=== PATIENT | female | born 1970 | race Caucasian/White ===

== ENCOUNTER 2024-02-02 09:41 | Emergency (ER) | payer MEDICAID, SELFPAY ==
[2024-02-02 09:59] VITALS: BP 148/89; PULSE 71; RESP 18; TEMP 36.6; O2SAT 98; BMI 42.5
--- NOTE | 2024-02-02 10:16 | W.ED.ABDPA2 ---
HPI - Abdominal Pain General: Chief Complaint: Abdominal Pain Stated Complaint: left side pain, gittery, dizzy Time Seen by Provider: 02/02/24 10:05 History of Present Illness: 60-year-old female who presents emergency room with left flank and groin pain, nausea and vomiting, and dysuria. She says she think she has a urinary tract infection. She feels like she cannot urinate. She says she has had fevers. She says at the beginning of the week she started with nausea vomiting and diarrhea that lasted about 3 days. She then felt better for a day or 2 and then the symptoms started. Fever flank pain primarily Physical Exam Narrative: EXAM NARRATIVE: General: Alert, no acute distress. Skin: Warm, dry. Head: Normocephalic, atraumatic. Neck: Supple, trachea midline. Eye: Extraocular movements are intact. Ears, nose, mouth and throat: Dry oral mucosa Cardiovascular: Regular, Normal peripheral perfusion. Respiratory: Lungs are clear to auscultation, respirations are non-labored, breath sounds are equal, Symmetrical chest wall expansion. Gastrointestinal: Soft, moderate left flank pain, diffuse mild abdominal pain, Non distended Musculoskeletal: Normal ROM, no deformity. Neurological: Alert and oriented, No focal neurological deficit observed. Psychiatric: Cooperative, appropriate mood & affect. Course Vital Signs: Vital signs: Vital Signs Temperature 97.9 F 02/02/24 09:59 Pulse Rate 105 H 02/02/24 13:43 Respiratory Rate 17 02/02/24 13:43 Blood Pressure 122/71 02/02/24 13:43 Pulse Oximetry 96 02/02/24 13:43 Oxygen Delivery Me thod Room Air 02/02/24 13:43 MDM - Abdominal Pain Medical Decision Making Medical decision making: Differential diagnosis including but not limited to and based on the above HPI, review of systems and physical exam: Ureterolithiasis. Urinary tract infection. Appendicitis. Cholecystis. Musculoskeletal / back pain. Pyelonephritis Orders placed to evaluate differential diagnosis based on the above differential, HPI and physical exam Lab Review: Laboratory results were reviewed and interpreted by myself the emergency room physician. Some mild leukocytosis. No renal failure. Her glucose is a bit elevated at 273. Urine has leukocyte esterase and nitrite positive. Whites and reds. CT of the abdomen pelvis with contrast. Mild left hydronephrosis and hydroureter with perinephric stranding. There is a 3 mm stone in the bladder which most likely represents a passed stone particularly given her history. And that she is now pain-free. This was reviewed and interpreted by myself the emergency room physician. I also reviewed the radiology report. I reviewed the patient's medical record. Reexamination: Patient seems to be feeling quite a bit better. Pain has resolved. No increased work of breathing. No altered mental status. Assessment and plan: Passed kidney stone Urinary tract infection Dehydration ?IV Dilaudid, IV Zofran and IV fluids. IV Rocephin. - Discharged home - Discussed findings and plan with patient. Answered any questions. - All laboratory values were reviewed and interpreted personally by myself, the ER physician - All imaging was reviewed and interpreted personally by myself, the ER physician. - Evaluation and treatment of this problem were appropriate in the emergency setting Lab Data 02/02/24 10:23 02/02/24 10:23 Labs/Radiology: Radiology Impressions Abdomen/Pelvis CT 02/02/24 11:54 IMPRESSION: 1. There is mild left hydronephrosis and hydroureter with perinephric stranding. There is a tiny stone (3 mm) in the bladder which may reflect a recently passed left ureteral stone. Punctate nonobstructive renal stones are seen bilaterally. 2. Hepatosplenomegaly with hepatic steatosis and periportal lymphadenopathy. 3. Uterine lesions that may represent fibroids/lipoleiomyoma. The endometrium appears slightly prominent for age. Recommend nonemergent ultrasound to further assess. Laboratory Results WBC 10.65 10^3/uL (3.29-11.43) 02/02/24 10:23 RBC 4.95 10^6/uL (3.85-5.65) 02/02/24 10:23 Hgb 14.00 g/dL (11.27-16.99) 02/02/24 10:23 Hct 41.9 % (36-47) 02/02/24 10:23 MCV 84.6 fl (85-98) L 02/02/24 10:23 MCH 28.3 pg (27-33) 02/02/24 10:23 MCHC 33.4 g/dL (30-55) 02/02/24 10:23 RDW 14.1 % (12.1-15.1) 02/02/24 10:23 Plt Count 271 10^3/cmm (157-399) 02/02/24 10:23 MPV 9.4 fL (7.4-10.4) 02/02/24 10:23 Neut % (Auto) 63.5 % 02/02/24 10:23 Lymph % (Auto) 28.5 % 02/02/24 10:23 Mccone % (Auto) 3.8 % 02/02/24 10:23 Eos % (Auto) 2.1 % 02/02/24 10:23 Baso % (Auto) 0.6 % 02/02/24 10:23 Neut # (Auto) 6.77 10^3/uL (1.8-7.7) 02/02/24 10:23 Lymph # (Auto) 3.0 10^3/uL (0.8-4.8) 02/02/24 10:23 Mccone # (Auto) 0.4 10^3/uL (0.2-0.9) 02/02/24 10:23 Eos # (Auto) 0.2 10^3/uL (0.0-0.8) 02/02/24 10:23 Baso # (Auto) 0.1 10^3/uL (0.0-0.1) 02/02/24 10:23 Nucleated RBC % (auto) 0 % 02/02/24 10:23 Nucleated RBCs # 0.0 /100WBC 02/02/24 10:23 Sodium 140 mmol/L (136-145) 02/02/24 10:23 Potassium 3.7 mmol/L (3.5-5.1) 02/02/24 10:23 Chloride 104 mmol/L (98-107) 02/02/24 10:23 Carbon Dioxide 19 mmol/L (22-29) L 02/02/24 10:23 Anion Gap 20.7 (5-19) H 02/02/24 10:23 BUN 13 mg/dL (6-20) 02/02/24 10:23 Creatinine 0.7 mg/dL (0.5-0.9) 02/02/24 10:23 GFR Calculation 87.9 mL/min (90-130) L 02/02/24 10:23 Glucose 273 mg/dL (65-115) H 02/02/24 10:23 Calculated Osmolality 300 mOsm/kg (285-295) H 02/02/24 10:23 Lactic Acid 2.7 mmol/L (0.5-2.2) H 02/02/24 10:23 Calcium 8.8 mg/dL (8.5-10.5) 02/02/24 10:23 Total Bilirubin 0.4 mg/dL (0.15-1.2) 02/02/24 10:23 AST 18 U/L (0-32) 02/02/24 10:23 ALT 33 U/L (0-33) 02/02/24 10:23 Alkaline Phosphatase 83 U/L (35-105) 02/02/24 10:23 C-Reactive Protein 10.4 mg/L (0.0-4.9) H 02/02/24 10:23 Total Protein 7.1 g/dL (6.6-8.7) 02/02/24 10:23 Albumin 3.7 g/dL (3.5-5.2) 02/02/24 10:23 Globulin 3.4 g/dL (1.3-4.6) 02/02/24 10:23 Lipase 40 U/L (13-60) 02/02/24 10:23 Procalcitonin 0.11 ng/mL (0-0.5) 02/02/24 10:23 Urine Color Yellow (Yellow) 02/02/24 10:56 Urine Appearance Cloudy (CLEAR) A 02/02/24 10:56 Urine pH 5 (5-7) 02/02/24 10:56 Ur Specific Bozman 1.015 (1.005-1.030) 02/02/24 10:56 Urine Protein Neg (Negative) 02/02/24 10:56 Urine Glucose (UA) 4+ (Normal) H 02/02/24 10:56 Urine Ketones 2+ (Negative) H 02/02/24 10:56 Urine Blood 2+ (Negative) H 02/02/24 10:56 Urine Nitrate Positive (Negative) A 02/02/24 10:56 Urine Bilirubin Neg (Negative) 02/02/24 10:56 Urine Urobilinogen Norm mg/dL (Negative) 02/02/24 10:56 Ur Leukocyte Esterase 2+ (Negative) H 02/02/24 10:56 Urine RBC 5-10 /hpf (0-2) H 02/02/24 10:56 Urine WBC 25-40 /hpf (0-5) H 02/02/24 10:56 Ur Squamous Epith Cells 5-10 /hpf (0-5) H 02/02/24 10:56 Amorphous Sediment Not Reportable 02/02/24 10:56 Urine Bacteria 2+ /hpf (NONE) H 02/02/24 10:56 Serum Ketones Negative (Negative) 02/02/24 10:23 All radiology interpretation(s) finalized by discharge Discharge Plan Discharge Patient Disposition: Home Clinical Impression: Kidney stone, Urinary tract infection, Dehydration Condition: Stable Prescriptions: New hydrocodone-acetaminophen 5-325 mg tablet 1 tab PO Q6H PRN (Reason: pain) Qty: 20 0RF ondansetron 8 mg tablet,disintegrating 8 mg PO .q6 PRN (Reason: nausea and vomiting) Qty: 14 0RF cefdinir 300 mg capsule 300 mg PO BID 7 Days Qty: 14 0RF Discharge Orders: Discharge ED (Routine); Ordered 02/02/24 Ordered By: Zulma Brown Referrals: Gabriella Waddell APN [Family Provider] - Discharge Diet: Usual diet Discharge Activity: Increase activity as tolerated Patient Instructions: Kidney Stones (ED), Urinary Tract Infection in Women (ED) Activity Restrictions/Additional Instructions: CT scan shows what is likely fibroids in your uterus. You need to have follow-up with your primary care or your technical analyst for a routine ultrasound to evaluate this further. Thank you for choosing [facility] for your healthcare needs today. Please realize this is an emergency room and that we are providing you with a medical screening exam and this may not be complete and all inclusive of all the testing and or work up that you may need to determine your ailment or severity of your illness. You have been screened and evaluated and felt safe for discharge. Health conditions do change or evolve sometimes and as such it is important that you follow up with your Primary Doctor to be re checked, 3-5 days is a general good time frame for follow up. You are always welcome to return to the ED for re assessment if your symptoms are worsening or you have new concerns Coding Level of Care Code ED [employer] for [employer] Delacruz
[2024-02-02] MEDS: sodium chloride 0.9% 1,000 ML 999 ML IV (10:27)
[2024-02-02] MEDS: ondansetron 2 mg/ML SDV 2 mL 8 MG IVP (10:28)
[2024-02-02] MEDS: HYDROmorphone 1 mg/mL INJ 1 mL IVP (10:28)
[2024-02-02 10:32] LABS: Basophils # 0.1 10^3/uL (0.0-0.1); Basophils % 0.6 %; Eosinophils # 0.2 10^3/uL (0.0-0.8); Eosinophils % 2.1 %; Hematocrit 41.9 % (36-47); Lymphocytes % 28.5 %; Mean Corpuscular HGB Conc 33.4 g/dL (30-55); Mean Corpuscular Hemoglobin 28.3 pg (27-33); Mean Corpuscular Volume 84.6 fl (85-98); Mean Platelet Volume 9.4 fL (7.4-10.4); Monocytes # 0.4 10^3/uL (0.2-0.9); Monocytes % 3.8 %; Neutrophils # 6.77 10^3/uL (1.8-7.7); Neutrophils % 63.5 %; Nucleated Red Blood Cells % 0 %; Platelet Count 271 10^3/cmm (157-399); Red Blood Count 4.95 10^6/uL (3.85-5.65); Red Cell Distribution Width 14.1 % (12.1-15.1); White Blood Count 10.65 10^3/uL (3.29-11.43)
[2024-02-02 10:46] VITALS: BP 134/76; PULSE 70; O2SAT 97
[2024-02-02 10:51] LABS: Alanine Aminotransferase 33 U/L (0-33); Albumin Level 3.7 g/dL (3.5-5.2); Alkaline Phosphatase 83 U/L (35-105); Anion Gap 20.7 (5-19); Aspartate Amino Transferase 18 U/L (0-32); Blood Urea Nitrogen 13 mg/dL (6-20); C Reactive Protein 10.4 mg/L (0.0-4.9); Calcium 8.8 mg/dL (8.5-10.5); Carbon Dioxide 19 mmol/L (22-29); Chloride 104 mmol/L (98-107); Creatinine Clr Calc Pharmacy 103.1516; Globulin 3.4 g/dL (1.3-4.6); Glomerular Filtration Rate 87.9 mL/min (90-130); Glucose 273 mg/dL (65-115); Lipase 40 U/L (13-60); Osmolality Calculated 300 mOsm/kg (285-295); Potassium 3.7 mmol/L (3.5-5.1); Sodium 140 mmol/L (136-145); Total Bilirubin 0.4 mg/dL (0.15-1.2); Total Protein 7.1 g/dL (6.6-8.7)
[2024-02-02 10:52] LABS: Lactic Sepsis W/Reflex 2.7 mmol/L (0.5-2.2)
[2024-02-02 10:57] LABS: Procalcitonin 0.11 ng/mL (0-0.5)
[2024-02-02 11:17] LABS: Bacteria Urine 2+ /hpf; Bilirubin Urine Neg (Negative); Blood Urine 2+ (Negative); Glucose Urine UA 4+ (Normal); Ketones Urine 2+ (Negative); Leukocyte Esterase Urine 2+ (Negative); Nitrate Urine Positive (Negative); Protein Urine Neg (Negative); Specific Gravity, Urine 1.015 (1.005-1.030); Urine Appearance Cloudy (CLEAR); Urine Color Yellow (Yellow); Urobilinogen Urine Norm (Negative); WBC Urine 25-40 /hpf (0-5); pH Urine 5 (5-7)
[2024-02-02 11:18] LABS: Add Urine Culture? Yes
--- NOTE | 2024-02-02 11:54 | CTR_ITS ---
PROCEDURE INFORMATION: Exam: CT Abdomen And Pelvis Without Contrast Exam date and time: 02/02/2024 12:03 PM Age: 53 years old Clinical indication: Abdominal pain; Generalized; Prior surgery; Surgery date: 6+ months; Surgery type: Gb TECHNIQUE: Imaging protocol: Computed tomography of the abdomen and pelvis without contrast. Radiation optimization: All CT scans at this facility use at least one of these dose optimization techniques: automated exposure control; mA and/or kV adjustment per patient size (includes targeted exams where dose is matched to clinical indication); or iterative reconstruction. COMPARISON: CT angio chest PE protcl [id number] 06/16/2019 10:48 AM RADIATION DOSE METRICS: Total DLP (mGy-cm): 613.26 FINDINGS: Liver: The liver is enlarged measuring 22.7 cm. There is diffuse hepatic steatosis. Gallbladder and biliary ducts: The gallbladder has been removed. Pancreas: The pancreas is unremarkable. Spleen: The spleen is enlarged measuring 16.4 cm. Adrenal glands: The adrenal glands are unremarkable. Kidneys and ureters: There is mild left hydronephrosis and hydroureter with perinephric stranding. Punctate nonobstructive renal stones are seen bilaterally. Stomach and bowel: The stomach and small bowel are unremarkable. The colon is unremarkable. Appendix: The appendix is unremarkable. Intraperitoneal space: No free intraperitoneal air is identified. Vasculature: No abdominal aortic aneurysm. Lymph nodes: A periportal lymph node measures 1.3 x 2.3 cm. Urinary bladder: There is a tiny stone (3 mm) in the bladder which may reflect a recently passed left ureteral stone. 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 Possible additional anterior uterine fibroid measuring 1.6 cm. The endometrium appears slightly prominent for age. Bones/joints: No acute fracture is seen. Soft tissues: Small fat containing ventral supraumbilical hernia at midline. CT/CT abdomen pelvis wo con [id number] IMPRESSION: 1. There is mild left hydronephrosis and hydroureter with perinephric stranding. There is a tiny stone (3 mm) in the bladder which may reflect a recently passed left ureteral stone. Punctate nonobstructive renal stones are seen bilaterally. 2. Hepatosplenomegaly with hepatic steatosis and periportal lymphadenopathy. 3. Uterine lesions that may represent fibroids/lipoleiomyoma. The endometrium appears slightly prominent for age. Recommend nonemergent ultrasound to further assess.
[2024-02-02] MEDS: cefTRIAXone 1,000 MG in sodium chloride 0.9% (plus) 50 ML 100 MG IV (12:10)
[2024-02-02 12:16] LABS: Reflex Lactate Order REFLEX LACTIC ORDERD
[2024-02-02 12:18] VITALS: BP 151/71; PULSE 109; RESP 19; O2SAT 97
[2024-02-02 12:30] VITALS: BP 116/66; O2SAT 90
[2024-02-02 13:09] LABS: Ketone (Acetest) Serum Negative (Negative)
[2024-02-02 13:43] VITALS: BP 122/71; PULSE 105; RESP 17; O2SAT 96
== END 2024-02-02 14:04 | disposition home or self-care (01) ==
PROVIDERS: Emergency Provider Emergency Medicine; Family Provider Nurse Practitioner Family
DX: N39.0 Urinary tract infection, site not specified (principal); E86.0 Dehydration; N13.2 Hydronephrosis with renal and ureteral calculous obstruction
CPT/HCPCS: 36415; 74176; 80053; 81001; 82009; 83605; 83690; 84145; 85025; 86140; 87077; 87086; 87186; 96374; 96375; 99285; J0696; J1170; J2405; J7030